=== PATIENT | male | born 1965 | race Caucasian/White ===

== ENCOUNTER 2017-01-17 07:22 | Outpatient (CLI) | payer OTHER | END 2017-01-17 07:23 | disposition home or self-care (01) | LOC: DTY/OP 07:22 | PROVIDERS: ATTEND Surgery | DX: E78.5 Hyperlipidemia, unspecified (principal); E11.9 Type 2 diabetes mellitus without complications; I10 Essential (primary) hypertension | CPT/HCPCS: 97802 ==

== ENCOUNTER 2017-02-15 12:18 | Day surgery (SDC) | payer BC, OTHER ==
[2017-02-14 12:15] VITALS: BMI 36.9
[2017-02-15] MEDS ORDERED: Lidocaine 1% PF 5 ML VIAL ONE (14:23)
[2017-02-15] MEDS ORDERED: Propofol 200 MG/20 ML VIAL ONE (14:23)
--- NOTE | 2017-02-15 17:12 | OP ---
PREOPERATIVE DIAGNOSIS: Persistent vomiting. PROCEDURE IN DETAIL: After informed consent was obtained, the patient was placed in the left lateral decubitus position. Anesthesia was administered per the Anesthesia Department. Forward-viewing end oscope was inserted into the esophagus under direct visualization with ease and passed to the second portion of the duodenum with ease. Second portion of the duodenum and duodenal bulb were normal exce pt for some Davian gland hyperplasia. This was biopsied and confirmed that this was Davian gland h yperplasia, but no ulcers or other abnormalities were seen. The antrum, body, fundus and cardia were all normal except for some mild erythema in the gastric antrum. Biopsies were taken. Retroflexion in the stomach was normal. The esophagus was normal throughout. No erosions or other abnormalities were noted. ASSESSMENT: 1. Mild antral erythema - status post biopsy. 2. 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 3. Otherwise normal esophagogastroduodenoscopy. RECOMMENDATIONS: Await histopathology.
== END 2017-02-15 15:05 | disposition home or self-care (01) ==
LOC: SDC 12:18
PROVIDERS: ATTEND Internal Medicine Gastroenterology
PROC: 0DB98ZX Excision of Duodenum, Via Natural or Artificial Opening Endoscopic, Diagnostic (ICD-10-PCS; principal; 2017-02-15)
PROC: 0DB68ZX Excision of Stomach, Via Natural or Artificial Opening Endoscopic, Diagnostic (ICD-10-PCS; principal; 2017-02-15)
DX: K31.89 Other diseases of stomach and duodenum (principal); I10 Essential (primary) hypertension; E11.9 Type 2 diabetes mellitus without complications; Z79.84 Long term (current) use of oral hypoglycemic drugs; Z79.82 Long term (current) use of aspirin; Z79.899 Other long term (current) drug therapy; Z88.0 Allergy status to penicillin; Z90.49 Acquired absence of other specified parts of digestive tract; Z98.890 Other specified postprocedural states
CPT/HCPCS: 88305; 88312; J2001; J2704

== ENCOUNTER 2017-02-20 08:06 | Outpatient (CLI) | payer BC, OTHER ==
[2017-02-20 09:47] LABS: #Eosinphils 0.1 thou/uL (0.0-0.7); #Lymphocytes 2.3 thou/uL (1.20-3.40); #Monocytes 0.5 thou/uL (0.11-0.59); %Basophils 0.3 % (0.0-1.0); %Lymphocytes 38.8 % (21.0-51.0); %Monocytes 8.2 % (0.0-10.0); Hematocrit 45.5 % (42.0-52.0); Mean Platelet Volume 8.1 fL (7.4-10.4); Red Blood Cell (RBC) Count 4.81 mill/uL (4.70-6.10); White Blood Cell (WBC) Count 5.9 thou/uL (4.8-10.8)
[2017-02-20 09:59] LABS: ALT (SGPT) 63 U/L (8-55); AST (SGOT) 34 U/L (5-34); Alkaline Phosphatase 87 U/L (40-150); Anion Gap 12 mmol/L (10-20); BUN (Urea Nitrogen) 11 mg/dL (8.4-25.7); Bilirubin, Direct 0.2 mg/dL (0.1-0.3); Bilirubin, Total 0.4 mg/dL (0.2-1.2); Calc. Creatinine Clearance 0 mL/min (70-130); Calcium 10.3 mg/dL (7.8-10.44); Carbon Dioxide 25 mmol/L (22-29); Chloride 103 mmol/L (98-107); Estimated GFR-MDRD 79; Globulin 3.2 g/dL (2.4-3.5); Protein, Total 7.5 g/dL (6.0-8.3)
[2017-02-20 10:08] LABS: Hemoglobin A1c 9.8 % (4.0-6.0)
--- NOTE | 2017-02-20 12:22 | RAD ---
CHEST 2 VIEWS: Date: 02/20/17 HISTORY: Preop. FINDINGS: No comparison. The cardiac silhouette and pulmonary vasculature are unremarkable. Mediastinum is midline with aortic calcification. There is no confluent air space consolidation, pneumothorax, or pleural fluid evident . Metallic clips overlie the mid abdomen on the lateral view. Old, healed fractures involving each cl avicle and the left scapula are apparent. There are postop changes of the left shoulder. IMPRESSION: 1. Atherosclerosis. 2. No active cardiopulmonary abnormalities are demonstrated. POS: PAIGE
== END 2017-02-20 08:07 | disposition home or self-care (01) ==
LOC: LABBT 08:06
PROVIDERS: ATTEND Surgery
DX: Z01.818 Encounter for other preprocedural examination (principal); E66.01 Morbid (severe) obesity due to excess calories; I70.90 Unspecified atherosclerosis
CPT/HCPCS: 71020; 80053; 80076; 83036; 85025; 93005; 93010

== ENCOUNTER 2017-02-23 08:30 | Inpatient (IN) | payer BC, OTHER ==
[2017-02-23] MEDS ORDERED: Heparin 5,000 UNITS/ML VIAL ONE (10:58)
[2017-02-23] MEDS ORDERED: Levofloxacin 500 mg/D5W 100 ml Premix Bag ONE (12:34)
[2017-02-23] MEDS ORDERED: Midazolam HCl 2 mg/2 ml Vial ONE ×2 (12:35→12:53)
[2017-02-23] MEDS ORDERED: Fentanyl 100 MCG/2 ML VIAL ONE ×5 (12:53→15:59)
[2017-02-23] MEDS ORDERED: Bupivacaine/Epinephrine 0.25% 30 ML VIAL ONE (13:09)
[2017-02-23] MEDS ORDERED: HYDROmorphone 0.5 MG/0.5 ML SYRINGE ONE ×5 (14:35→16:21)
[2017-02-23] MEDS ORDERED: Promethazine HCl 25 MG/ML VIAL IM PRN ×3 (15:18→17:09)
[2017-02-23] MEDS ORDERED: Promethazine HCl 25 MG/ML VIAL SLOW IVP PRN (15:18)
[2017-02-23] MEDS ORDERED: HYDROmorphone 2 MG/ML VIAL SLOW IVP PRN (15:18)
[2017-02-23] MEDS ORDERED: Meperidine HCl/PF 25 MG/ML VIAL SLOW IVP PRN (15:18)
[2017-02-23] MEDS ORDERED: Ondansetron HCl/PF 4 MG/2 ML Vial IVP PRN ×2 (15:18→17:09)
[2017-02-23] MEDS ORDERED: Glycopyrrolate 0.2 MG/ML 5 ML SYRINGE ONE (16:06)
[2017-02-23] MEDS ORDERED: Ondansetron HCl/PF 4 MG/2 ML Vial ONE (16:06)
[2017-02-23] MEDS ORDERED: Lidocaine 1% PF 5 ML VIAL ONE (16:06)
[2017-02-23] MEDS ORDERED: ePHEDrine/0.9% NaCl/PF SYRINGE 50 mg/10 ml ONE (16:06)
[2017-02-23] MEDS ORDERED: Propofol 200 MG/20 ML VIAL ONE (16:06)
[2017-02-23] MEDS ORDERED: Ketorolac Tromethamine 30 MG/ML VIAL ONE (16:06)
--- NOTE | 2017-02-23 16:20 | OP ---
DATE OF PROCEDURE: 02/23/2017 PREOPERATIVE DIAGNOSES: 1. Morbid obesity with a body mass index of 39. 2. Diabetes mellitus. 3. Hypertension. 4. Hyperlipidemia. POSTOPERATIVE DIAGNOSES: 1. Morbid obesity with a body mass index of 39. 2. Diabetes mellitus. 3. Hypertension. 4. Hyperlipidemia. PROCEDURES: 1. Laparoscopic sleeve gastrectomy with Terril staple line reinforcements and 38-Citizen [place] bougie. 2. Paraesophageal hiatal hernia repair. SURGEON: Charles Torres M.D. ANESTHESIA: General. ESTIMATED BLOOD LOSS: Minimal. COMPLICATIONS: None. SPECIMEN: Stomach. FINDINGS: Small hiatal hernia fixed with a 28-Citizen [place] bougie. INDICATION: The patient is a 51-year-old male, who presents for weight loss surgery. He has attende d our preoperative seminar. He understands risks, benefits, and alternatives procedures. He gives c onsent. He has been to our preop education class and had a psychologic evaluation. TECHNIQUE: The patient was taken to the operating room and placed supine on the table. After genera l anesthetic was obtained, arms and legs were double strapped to bariatric table. His abdomen was sh aved, prepped, and draped in a sterile fashion. Left subcostal 5-mm Optiview trocar was placed in th e usual fashion and high-flow pneumoperitoneum was obtained. Left and right abdominal 12-mm ports an d right subcostal 5-mm port were all placed under direct visualization. The patient was placed under direct Trendelenburg position. Karena was brought in through an incision at the xiphoid and rais ed the liver off the GE junction. Short gastrics were taken down, mid body of the stomach to left cr us of the diaphragm using LigaSure, taken down to a distance of 5 cm proximal to pylorus. All kiln operator ior adhesions were taken down. The patient was found to have a small hiatal hernia. The gastrohepat ic ligament was opened and the right paula of the diaphragm was found. The mediastinum was entered me dial to the paula. A circumferential dissection of the esophagus was performed. The GE junction is p ulled back into the abdominal cavity. A 38-bougie was brought in and its tip left in the antrum of t he stomach. One suture was used posteriorly to reapproximate the crura after the 38-bougie was passe d making sure that the hiatus was not made too tight. Multiple loads of an [place]tee stapling device w ere used to form the sleeve. The first was a green load fired up at a distance of 5 cm proximal to t he pylorus angled up towards the sleeve. Multiple loads were then fired up along the bougie and stom ach was completely transected at the angle of His. The stomach was removed from the left abdominal i ncision. This fascial defect was closed using GraNee needle and 0 Vicryl tie. All port sites were i nfiltrated using local anesthetic. EGD scope was passed into the esophagus, stomach to the level of the duodenum without obstruction. There is no injury. There is no air leakage through the staple li ne. The esophageal hiatus and GE junction was not too tight. There was no bleeding internally or ex ternally on the staple line. EGD scope was used to decompress the stomach, was pulled and removed. The Karena was removed under direct visualization. All port sites were infiltrated using local an esthetic. All ports were removed under camera visualization. Pneumoperitoneum was let down. PDS wa s used to close the fascial defect from left abdominal incision as well. All incisions were irrigate d and closed using 4-0 Monocryl and Dermabond. The patient went to recovery room in stable condition . All instrument counts, needle counts, and lap counts were correct.
[2017-02-23] MEDS ORDERED: diphenhydrAMINE 25 MG CAP PO PRN (16:36)
[2017-02-23] MEDS ORDERED: Naloxone HCl 0.4 mg/ml Vial IV PRN (16:36)
[2017-02-23] MEDS ORDERED: diphenhydrAMINE 50 MG/ML VIAL IM PRN (16:36)
[2017-02-23] MEDS ORDERED: diphenhydrAMINE 50 MG/ML VIAL IVP PRN ×2 (16:36→17:09)
[2017-02-23] MEDS ORDERED: Fentanyl 5000 MCG/250 ML CADD IVPB PRN (16:36)
[2017-02-23] MEDS ORDERED: Zolpidem Tartrate 5 MG TAB PO PRN (16:36)
[2017-02-23] MEDS ORDERED: Communication Order-Pharmacy FS SCH (16:45)
[2017-02-23] MEDS ORDERED: Hydrocodone-Acetamin 15 ML UDCUP PO PRN (17:09)
[2017-02-23] MEDS ORDERED: hydrALAZINE 20 MG/ML VIAL SLOW IVP PRN (17:09)
[2017-02-23] MEDS ORDERED: Dextrose 50% Abboject 50 ML SYRINGE SLOW IVP PRN (17:09)
[2017-02-23] MEDS ORDERED: Dextrose 5% in Water 1,000 ML IV PRN (17:09)
[2017-02-23 17:52] VITALS: BMI 36.8
[2017-02-23] MEDS: Acetaminophen 1,000 MG in Premix Bag 1 BAG IVPB SCH (18:24)
[2017-02-23] MEDS: 1/2 NS w/KCL 20 mEq 1,000 ML IV SCH (18:25)
[2017-02-23] MEDS ORDERED: Enoxaparin Sodium 40 MG/0.4 ML SYRINGE SC SCH (21:00)
[2017-02-24] MEDS: Acetaminophen 1,000 MG in Premix Bag 1 BAG IVPB SCH ×3 (01:45→11:31)
[2017-02-24] MEDS: 1/2 NS w/KCL 20 mEq 1,000 ML IV SCH (01:46)
[2017-02-24] MEDS: Ondansetron HCl/PF 4 MG/2 ML Vial IVP PRN ×2 (04:51→11:39)
[2017-02-24] MEDS: HumaLOG 300 UNITS/3 ML VIAL SC PRN ×3 (05:01→18:54)
[2017-02-24 06:23] LABS: #Eosinphils 0.1 thou/uL (0.0-0.7); #Lymphocytes 2.3 thou/uL (1.20-3.40); #Monocytes 0.7 thou/uL (0.11-0.59); #Neutrophils 9.9 thou/uL (1.40-6.50); %Basophils 0.1 % (0.0-1.0); %Eosinophils 0.5 % (0.0-10.0); %Monocytes 5.5 % (0.0-10.0); Hematocrit 40.6 % (42.0-52.0); Mean Platelet Volume 8.2 fL (7.4-10.4)
[2017-02-24 06:50] LABS: Anion Gap 18 mmol/L (10-20); BUN (Urea Nitrogen) 23 mg/dL (8.4-25.7); Calc. Creatinine Clearance 119 mL/min (70-130); Calcium 8.9 mg/dL (7.8-10.44); Carbon Dioxide 18 mmol/L (22-29); Chloride 103 mmol/L (98-107); Estimated GFR-MDRD 59
[2017-02-24] MEDS: Pantoprazole 40 MG VIAL IVP SCH (08:33)
[2017-02-24] MEDS: Sodium Chloride 0.9% 1,000 ML IV SCH ×2 (08:35→18:03)
[2017-02-24 08:53] LABS: Troponin I Less than 0.010 ng/mL (< 0.028)
[2017-02-24] MEDS: Morphine 4 MG/ML VIAL SLOW IVP PRN ×2 (08:57→21:58)
[2017-02-24] MEDS ORDERED: Morphine 4 MG/ML VIAL SLOW IVP PRN (09:00)
[2017-02-24] MEDS ORDERED: Amlodipine 5 MG TAB PO SCH (09:00)
--- NOTE | 2017-02-24 12:40 | PRG ---
DATE OF SERVICE: 02/24/2017 SUBJECTIVE: Mr. Corrales is complaining of shortness of breath and has been since early this m orning. He was not able to pee, had a catheter put in, in and out catheter at 5:00 a.m. that brought out 400 mL of urine. He has not peed since. He has not been able to walk as he feels dizzy. They held off on and taken him down for a swallow exam for the same reason. OBJECTIVE: VITAL SIGNS: His blood pressure is 104/71, pulse 69, respirations are 18, temperature 98.0. GENERAL: He is doing his CPAP right now while he is resting. Other than the 350 out this morning on in and out cath, another urine output is reported. CHEST: Bilateral coarse breath sounds. HEART: Regular rate and rhythm. ABDOMEN: Soft, appropriately tender. He does have some suprapubic tenderness. LABORATORY DATA: White blood cell count is 13, hemoglobin is 13 and platelet count is 241. Sodium 1 33, potassium 5.6, creatinine 1.28 and glucose 263. ASSESSMENT: Postoperative day #1, laparoscopic gastric sleeve with hiatal hernia repair as well. PLAN: We will do a CT of the chest with oral contrast to rule out PE as well as staple line leak. H is EKG is normal. His troponin is normal. His labs were all normal, hemoglobin normal. Unsure of t he etiology of his shortness of breath.
--- NOTE | 2017-02-24 14:16 | CT ---
CTA CHEST WITH CONTRAST: HISTORY: Evaluate for leak. COMPARISON: None. FINDINGS: DICTATION CUT OFF - REPORT INCOMPLETE POS: TPC
[2017-02-24 14:44] LABS: Hematocrit 32.5 % (42.0-52.0)
[2017-02-24 22:23] LABS: Hematocrit 30.6 % (42.0-52.0)
[2017-02-25] MEDS: HumaLOG 300 UNITS/3 ML VIAL SC PRN ×4 (00:30→23:10)
[2017-02-25] MEDS: Sodium Chloride 0.9% 1,000 ML IV SCH ×3 (00:31→18:55)
[2017-02-25] MEDS: Morphine 4 MG/ML VIAL SLOW IVP PRN ×4 (03:35→23:11)
[2017-02-25 06:05] LABS: Hematocrit 26.1 % (42.0-52.0)
[2017-02-25] MEDS: Pantoprazole 40 MG VIAL IVP SCH (10:28)
--- NOTE | 2017-02-25 14:13 | PRG ---
DATE OF SERVICE: 02/25/2017 SUBJECTIVE: Mr. Hank Corrales is a 51-year-old male seen by Dr. Torres. The patient is sta tus post 02/23/2017, sleeve gastrectomy. Postoperatively, he has developed a slight anemia, hemoglob in preoperatively 13, yesterday morning 10.9, yesterday evening at 10.1, today 8.7. The patient has felt dizzy, diaphoretic and cannot stand. For this reason, he was given 1 unit of blood this morning . Since that transfusion, he feels much better. He is able to walk and move about the room and plan s to walk in the hallways. His Lovenox has been held. He had urinary retention yesterday with negli gible residual and Bradshaw catheter will be removed today. OBJECTIVE: VITAL SIGNS: Temperature 97.9, heart rate 98, respiratory rate 14, blood pressure 141/86. LUNGS: Clear to auscultation. CARDIAC: Regular rate and rhythm without murmur or gallop. ABDOMEN: Soft, nontender. Surgical wounds look good. LABORATORY DATA: Hemoglobin 8.7 this morning. ASSESSMENT: Postoperative anemia. PLAN: He has received 1 unit of blood this morning. He is ambulating better. We will check his hem oglobins 1700 night and 2200 night and in the morning possibly he go home tomorrow, pending clinical course, activity and hemoglobin.
[2017-02-25 17:07] LABS: Hematocrit 25.4 % (42.0-52.0)
[2017-02-25 22:07] LABS: Hematocrit 23.7 % (42.0-52.0)
[2017-02-26] MEDS: Sodium Chloride 0.9% 1,000 ML IV SCH ×2 (00:26→10:36)
[2017-02-26] MEDS: HumaLOG 300 UNITS/3 ML VIAL SC PRN (05:15)
[2017-02-26 05:20] LABS: #Basophils 0.1 thou/uL (0.0-0.2); #Eosinphils 0.1 thou/uL (0.0-0.7); #Lymphocytes 2.1 thou/uL (1.20-3.40); #Monocytes 1.1 thou/uL (0.11-0.59); #Neutrophils 5.7 thou/uL (1.40-6.50); %Basophils 0.7 % (0.0-1.0); %Eosinophils 0.8 % (0.0-10.0); %Lymphocytes 23.2 % (21.0-51.0); %Monocytes 11.9 % (0.0-10.0); Hematocrit 22.6 % (42.0-52.0); Mean Platelet Volume 7.8 fL (7.4-10.4); Red Blood Cell (RBC) Count 2.39 mill/uL (4.70-6.10)
[2017-02-26] MEDS: Morphine 4 MG/ML VIAL SLOW IVP PRN (09:01)
[2017-02-26] MEDS: Pantoprazole 40 MG VIAL IVP SCH (09:01)
--- NOTE | 2017-02-26 12:40 | PRG ---
DATE OF SERVICE: 02/26/2017 SUBJECTIVE: Mr. Corrales is doing well after laparoscopic sleeve gastrectomy and seen for Dr. Torres. The patient is doing well. His hemoglobin is 7.9 this morning, down from 8 yesterday eveni ng, and 8.7 yesterday morning. Patient is ambulatory now after 1 unit of blood and without dizziness . OBJECTIVE: VITAL SIGNS: 98 degrees, 96, and 121/60. LUNGS: Clear to auscultation. CARDIAC: Regular rate and rhythm without murmur or gallop. ABDOMEN: Soft, obese, protuberant, nontender. Surgical wounds look good. Electrolytes are unremarkable on 02/24/2017. Overall, the patient is doing well. He is consuming hi s liquids. He has had bowel movements that are not bloody. ASSESSMENT AND PLAN: Intra-abdominal bleed, post-sleeve gastrectomy, hemoglobin stable. The patient is ready for discharge home. He will follow up with Dr. Torres per his appointment. He will begin his protein supplements as well as his vitamins. He will follow the bariatric diet progression to s radha on bariatric full liquids for now. He will follow up with Dr. Torres in about a week to 10 days .
[2017-02-26 13:53] VITALS: BP 169/90; TEMP 98.3
--- NOTE | 2017-02-27 12:23 | EKG ---
Test Reason : Blood Pressure : / mmHG Vent. Rate : 087 BPM Atrial Rate : 087 BPM P-R Int : 132 ms QRS Dur : 088 ms QT Int : 362 ms P-R-T Axes : 055 011 035 degrees QTc Int : 435 ms Normal sinus rhythm Normal ECG Confirmed by ALIZE HILL ([id number]) on 02/27/2017 12:23:14 PM Referred By: BASIM Confirmed By:ALIZE HILL
--- NOTE | 2017-02-28 07:24 | CT ---
CONTRAST ENHANCED CTA CHEST: HISTORY: Patient with gastric sleeve. Respiratory difficulties. TECHNIQUE: Contrast enhanced CTA of the chest is performed, and 2D and 3D reconstructed images are performed on an independent 3D work station. FINDINGS: Images demonstrate coronary artery calcifications. The aortic arch is unremarkable. No evidence of filling defects seen in the pulmonary arteries to suggest pulmonary emboli. The patient has had a recent Gastrografin swallow. There is some free intraperitoneal fluid, compatible with blood, surrounding the liver. There is a l arge intraperitoneal area of soft tissue density, measuring approximately 13 x 15.8 cm, along the gre ater curvature of the stomach, concerning for an intraperitoneal hematoma. This is well anterior to the pancreas. The adrenal glands and kidneys are unremarkable. IMPRESSION: Soft tissue collection to the left of the greater curvature of the stomach, concerning for intraperit samuels hematoma. Some free pelvic fluid and blood is also present. This is seen to the right of the liver. Findings called to Dr. Torres at 2:12 p.m. on 02/24/2017 CODE CR POS: LOLY
== END 2017-02-26 14:11 | disposition home or self-care (01) | DRG 620 ==
LOC: SURG A 09:27
PROVIDERS: ADMIT Surgery; ATTEND Surgery
PROC: 0DB64Z3 Excision of Stomach, Percutaneous Endoscopic Approach, Vertical (ICD-10-PCS; principal; 2017-02-23)
PROC: 0BQT4ZZ Repair Diaphragm, Percutaneous Endoscopic Approach (ICD-10-PCS; 2017-02-23)
PROC: 0DJ08ZZ Inspection of Upper Intestinal Tract, Via Natural or Artificial Opening Endoscopic (ICD-10-PCS; 2017-02-23)
PROC: 30233N1 Transfusion of Nonautologous Red Blood Cells into Peripheral Vein, Percutaneous Approach (ICD-10-PCS; 2017-02-25)
PROC: 5A09357 Assistance with Respiratory Ventilation, Less than 24 Consecutive Hours, Continuous Positive Airway Pressure (ICD-10-PCS; 2017-02-25)
DX: E66.01 Morbid (severe) obesity due to excess calories (principal); D62 Acute posthemorrhagic anemia; E11.9 Type 2 diabetes mellitus without complications; Z68.39 Body mass index [BMI] 39.0-39.9, adult; I10 Essential (primary) hypertension; E78.5 Hyperlipidemia, unspecified; K44.9 Diaphragmatic hernia without obstruction or gangrene; R33.8 Other retention of urine; R06.02 Shortness of breath; F32.9 Major depressive disorder, single episode, unspecified; G47.33 Obstructive sleep apnea (adult) (pediatric); Z88.0 Allergy status to penicillin; I08.1 Rheumatic disorders of both mitral and tricuspid valves
CPT/HCPCS: 36415; 36416; 36430; 71275; 80048; 84484; 85014; 85018; 85025; 86850; 86900; 86901; 88307; 88312; 93005; 93010; 94760; C9113; J0131; J1170; J1644; J1650; J1885; J1956; J2001; J2250; J2270; J2405; J2704; J3010; P9016

== ENCOUNTER 2017-02-28 01:09 | Inpatient (IN) | payer BC, OTHER ==
[2017-02-28] MEDS ORDERED: Ondansetron ODT 4 MG TAB ONE (02:09)
[2017-02-28 02:34] LABS: ALT (SGPT) 44 U/L (8-55); AST (SGOT) 30 U/L (5-34); Albumin 4.1 g/dL (3.5-5.0); Alkaline Phosphatase 67 U/L (40-150); Anion Gap 14 mmol/L (10-20); BUN (Urea Nitrogen) 17 mg/dL (8.4-25.7); Calc. Creatinine Clearance 0 mL/min (70-130); Carbon Dioxide 24 mmol/L (22-29); Chloride 102 mmol/L (98-107); Estimated GFR-MDRD 75; Globulin 3.4 g/dL (2.4-3.5); Glucose 280 mg/dL (70-105); Potassium 4.2 mmol/L (3.5-5.1); Protein, Total 7.5 g/dL (6.0-8.3); Sodium 136 mmol/L (136-145)
[2017-02-28 02:53] LABS: Anisocytosis SLIGHT = 6-15 cells (100X) (0-5/hpf); Band 3 % (5-11); Eosinophils 1 % (0-10); Hemoglobin 9.1 g/dL (14.0-18.0); Hypochromia SLIGHT = 6-15 cells (100X) (0-5/hpf); Lymphocytes 26 % (21-51); MDiff Complete? YES; Mean Corpuscular HGB CONC 32.8 g/dL (32.0-36.0); Mean Corpuscular Hemoglobin 30.9 pg (27.0-31.0); Mean Corpuscular Volume 94.3 fl (80.0-94.0); Mean Platelet Volume 7.7 fL (7.4-10.4); Monocytes 8 % (0-10); Neutrophil 62 % (42-75); Platelet Count 267 thou/uL (130-400); Polychromasia SLIGHT = 2-3 cells (100X) (0-2/hpf); Red Blood Cell (RBC) Count 2.95 mill/uL (4.70-6.10)
[2017-02-28] MEDS ORDERED: Ondansetron HCl/PF 4 MG/2 ML Vial ONE (03:59)
[2017-02-28] MEDS ORDERED: Morphine 4 MG/ML VIAL ONE (03:59)
[2017-02-28] MEDS ORDERED: Benzocaine 20% Spray 60 ML CAN ONE (05:28)
[2017-02-28] MEDS ORDERED: Morphine 2 MG/ML SYRINGE SLOW IVP PRN (08:29)
[2017-02-28] MEDS ORDERED: Morphine 4 MG/ML VIAL SLOW IVP PRN (08:30)
[2017-02-28] MEDS: Sodium Chloride 0.9% 1,000 ML IV SCH ×2 (08:45→18:27)
[2017-02-28] MEDS: Pantoprazole 40 MG VIAL IVP SCH ×2 (08:45→20:38)
--- NOTE | 2017-02-28 10:25 | CT ---
PRELIMINARY REPORT/[facility]/EMERGENCY AFTER HOURS PROCEDURE: EXAM: CT Abdomen and Pelvis With Intravenous Contrast CLINICAL HISTORY: 51 years old, male; Pain; Abdominal pain; Generalized; Prior surgery; Surgery date: <1 month; Surgery type: Barriatric TECHNIQUE: Axial computed tomography images of the abdomen and pelvis with intravenous contrast. Coronal reforma tted images were created and reviewed. CONTRAST: 100 mL of ISOVUE administered intravenously. COMPARISON: No relevant prior studies available. FINDINGS: Lower thorax: No acute findings. ABDOMEN: Liver: No acute findings. No mass. Gallbladder and bile ducts: Gallbladder has been removed. No ductal dilation. Pancreas: No acute findings. No mass. No ductal dilation. Spleen: No acute findings. No splenomegaly. Adrenals: No acute findings. No mass. Kidneys and ureters: No acute findings. No solid mass. No hydronephrosis. Stomach and bowel: There is evidence for gastric sleeve surgery. There is high attenuation 14.4 x 18.5 x 10.0 cm fluid c ollection along the left /inferior border of the stomach consistent with large hematoma. There is sma ll volume perisplenic fluid. There are dilated proximal and mid small bowel loops containing fluid / air fluid levels with luminal diameter measuring up to 5.2 cm. The mid and distal loops are decompressed. Transition point is noted in the region of the left lower quadrant. The findings are consistent with small bowel obstruction. Appendix: No findings to suggest acute appendicitis. PELVIS: Moderate volume of free hemorrhagic pelvic fluid layering dependently. Bladder: No acute findings. No mass. Reproductive: Unremarkable as visualized. ABDOMEN and PELVIS: Intraperitoneal space: No free air. See above regarding hematoma. Bones/joints: Chronic degenerative spinal changes without acute fracture or dislocation. Postoperative changes, left hip. Soft tissues: No acute findings. Vasculature: No acute findings. No abdominal aortic aneurysm. Lymph nodes: No acute findings. No enlarged lymph nodes. IMPRESSION: Large abdominal hematoma immediately adjacent to the stomach in this patient post recent gastric slee ve surgery. Moderate hemorrhagic fluid layering in the pelvis. Small volume perisplenic fluid. Findings suggestive of small bowel obstruction. THIS REPORT CONTAINS FINDINGS THAT MAY BE CRITICAL TO PATIENT CARE. The findings were verbally commun icated via telephone conference with GEE Smith by Dr. Francois on 02/28/2017 5:15 AM PHILOSOPHY FACULTY MEMBER. Th e results were acknowledged and understood. Thank you for allowing us to participate in the care of your patient. Dictated and Authenticated by: Camilo Francois MD 02/28/2017 5:20 AM Central Time ([place] & [place]) FINAL REPORT EMERGENT AFTER HOURS CT ABDOMEN AND PELVIS WITH CONTRAST: FINDINGS/IMPRESSION: I agree with the findings and impression given in the preliminary report by [facility] physician. There is a large hematoma adjacent to the patient's gastric sleeve. There is also a small amount of high densi ty fluid in the pelvis consistent with hemorrhage. No active extravasation is seen at this time. Ther e are dilated loops of small bowel which likely are secondary to small bowel ileus. Contrast is seen in the colon which suggests that dilated small bowel loops are ileus rather than a small bowel obstru ction. POS: PAIGE
[2017-02-28] MEDS ORDERED: diphenhydrAMINE 50 MG/ML VIAL IVP PRN (10:55)
[2017-02-28] MEDS ORDERED: hydrALAZINE 20 MG/ML VIAL SLOW IVP PRN (10:55)
[2017-02-28] MEDS ORDERED: Dextrose 50% Abboject 50 ML SYRINGE SLOW IVP PRN (10:55)
[2017-02-28] MEDS ORDERED: Dextrose 5% in Water 1,000 ML IV PRN (10:55)
[2017-02-28] MEDS ORDERED: Promethazine HCl 25 MG/ML VIAL IM PRN (10:55)
[2017-02-28] MEDS ORDERED: Ondansetron HCl/PF 4 MG/2 ML Vial IVP PRN (10:55)
--- NOTE | 2017-02-28 13:01 | HP ---
CHIEF COMPLAINT: Cold sweats, vomiting, nausea, abdominal pain. HISTORY OF PRESENT ILLNESS: The patient is a 51-year-old morbidly obese white male. He underwent la paroscopic sleeve gastrectomy on 02/23/2017. Following his surgery, he had experienced some shortnes s of breath, for which he had a CT angiogram performed on 02/24/2017. This revealed no evidence of a pulmonary embolism, but did show a 13 x 15 cm hematoma adjacent to the gastric sleeve. Accordingly, the patient's hemoglobin level dropped from 15 preoperatively down to 8.0 on the (postoperative day 2). He felt poorly and was transfused with 1 unit of packed red blood cells. He was discharged home thereafter and appeared to be tolerating his liquid diet and hemodynamically stable. About a d ay and half after he was discharged, last night, he developed recurrence of the same sort of symptoms that he had had while in the hospital. He complained of cold sweats, suspected low grade fever, robert sea and vomiting, and increasing abdominal pain and distention. He presented to the emergency room w here he underwent evaluation with another CT scan of his abdomen and laboratory studies. His laboratory studies reveal that his hemoglobin is stable at 9.1. His white blood cell count is 10 and he has a normal differential. His chemistry profile is entirely normal except for his elevated glucose level of 280. The CT scan of his abdomen revealed a persistent hematoma that was estimated a t 14 x 18 x 10 cm. This is certainly consistent with the same hematoma that was seen 3 days previous ly. There were also some dilated loops of small bowel proximally with decompressed small bowel dista lly. PAST MEDICAL HISTORY: Diabetes, sleep apnea, hypertension, hypercholesterolemia. PAST SURGICAL HISTORY: He has had an exploratory laparotomy as well as sleeve gastrectomy. ALLERGIES: PENICILLIN. MEDICATIONS: At home include acebutolol, amlodipine, aspirin, bupropion, fluoxetine, glyburide/metfo rmin, and simvastatin. PERSONAL/SOCIAL HISTORY: He is and his is present at bedside. They have 2 grown childr en. He normally dips tobacco, but has not since surgery. He normally drinks alcohol occasionally, b ut of course he has drunk no alcohol recently. He works in Criminal Justice. PRIMARY CARE PHYSICIAN: Dr. Nicholson. PHYSICAL EXAMINATION: VITAL SIGNS: Temperature 98.6, pulse 89, blood pressure 129/83, oxygen saturation on room air was 97 %. GENERAL: He is a pleasant, alert, obese white male, resting in bed. is present at bedside. He is alert and oriented x3 and conversant and cooperative. HEAD, EYES, EARS, NOSE, AND THROAT: Unremarkable. NECK: Supple. LUNGS: Clear to auscultation anteriorly. CARDIAC: Regular rate and rhythm without murmur. ABDOMEN: Obese and possibly little distended. His incisions are healing nicely with minimal appropr iate tenderness. There is surprisingly pretty good bowel sounds with no evidence of tympany. ASSESSMENT: This patient is hemodynamically stable and he is likely experiencing some side effects f rom the large retained intra-abdominal hematoma. There is clearly no ongoing bleeding related to his surgery. I suspect he has a segmental ileus, probably related to hematoma. I suspect his discomfor t and perhaps his sensation of cold sweats is related to the hematoma resolving also. Options are to consider surgery to irrigate and trying to aspirate the hematoma or proceed with observation. For n ow, given the stability, I would recommend continued observation. His surgeon, Dr. Torres, will ret urn tomorrow and he can readdress the option as he would desire. For now, I would recommend the kalyn ent be n.p.o. except for ice chips to keep his mouth moist. Narcotics are written for and available to him, but I have encouraged him to avoid these unless he needs them. I have also encouraged him to ambulate fairly regularly. I would not recommend beginning the Lovenox because of his recent bleed and therefore it is essential that he have his sequential compression devices on at all times when he is not ambulating. I suspect that his problems will resolve spontaneously just as the hematoma shou ld resolve without further intervention. I have discussed all this in detail with the patient and hi s . They feel relieved by the current situation and understand and agreed to proceed in this fas hion.
[2017-02-28] MEDS: Acetaminophen 1,000 MG in Premix Bag 1 BAG IVPB SCH ×2 (13:29→18:27)
[2017-02-28] MEDS: 1/2 NS w/KCL 20 mEq 1,000 ML IV SCH ×2 (13:29→20:38)
[2017-02-28] MEDS ORDERED: Iopamidol 370 76% 100 ML VIAL ONE (13:58)
[2017-03-01] MEDS: Acetaminophen 1,000 MG in Premix Bag 1 BAG IVPB SCH ×3 (00:12→12:36)
[2017-03-01] MEDS: 1/2 NS w/KCL 20 mEq 1,000 ML IV SCH ×3 (03:21→16:41)
[2017-03-01 05:37] LABS: Anion Gap 10 mmol/L (10-20); BUN (Urea Nitrogen) 15 mg/dL (8.4-25.7); Calc. Creatinine Clearance 187 mL/min (70-130); Calcium 8.7 mg/dL (7.8-10.44); Carbon Dioxide 28 mmol/L (22-29); Chloride 104 mmol/L (98-107); Estimated GFR-MDRD Greater than 90; Glucose 201 mg/dL (70-105); Potassium 4.1 mmol/L (3.5-5.1); Sodium 138 mmol/L (136-145)
[2017-03-01 06:00] LABS: #Eosinphils 0.2 thou/uL (0.0-0.7); #Lymphocytes 1.6 thou/uL (1.20-3.40); #Monocytes 0.8 thou/uL (0.11-0.59); #Neutrophils 3.4 thou/uL (1.40-6.50); %Basophils 0.4 % (0.0-1.0); %Eosinophils 3.1 % (0.0-10.0); %Lymphocytes 27.2 % (21.0-51.0); %Monocytes 12.6 % (0.0-10.0); %Neutrophils 56.6 % (42.0-75.0); Hemoglobin 7.9 g/dL (14.0-18.0); Mean Corpuscular HGB CONC 32.4 g/dL (32.0-36.0); Mean Corpuscular Hemoglobin 31.1 pg (27.0-31.0); Mean Corpuscular Volume 96.1 fl (80.0-94.0); Mean Platelet Volume 7.6 fL (7.4-10.4); Platelet Count 251 thou/uL (130-400); RBC Distribution Width 13.7 % (11.5-14.5); Red Blood Cell (RBC) Count 2.54 mill/uL (4.70-6.10)
[2017-03-01] MEDS: Pantoprazole 40 MG VIAL IVP SCH ×2 (07:50→21:24)
--- NOTE | 2017-03-01 09:56 | PRG ---
DATE OF SERVICE: 03/01/2017 SUBJECTIVE: Mr. Corrales feels better today. He is passing gas. He has been ambulatory multi ple times. Denies any nausea and vomiting this morning. PHYSICAL EXAMINATION: VITAL SIGNS: Blood pressure 136/82, pulse 92, respirations 16. He is afebrile. He has voided multi ple times. ABDOMEN: Soft, it is distended. There is diffuse ecchymoses to the mid to low abdomen. He does hav e bowel sounds. No guarding or rebound. LABORATORY DATA: White cell count is 6, hemoglobin 7.9, platelet count is 251. Sodium 138, potassiu m 4.1, creatinine 0.82, sugar 201. ASSESSMENT: Postoperative laparoscopic gastric sleeve, complicated by postoperative intra-abdominal hematoma and bleeding requiring 1 unit of packed red blood cells now with recurrent admission for robert sea and vomiting, likely related to ileus or dysphagia from his repair. PLAN: Supportive care. He is improved, we will attempt clear liquid diet today. Hemoglobin has kareem pped slightly from 9 to 7.9 that is probably delusional. He was probably dehydrated and with hemoglo bin last night on admission of 9. This most likely represents a true representation where he has con trolled sugars with sliding scale and encouraged ambulation.
[2017-03-01] MEDS: Insulin Regular 300 UNITS/3 ML VIAL SC PRN (17:39)
[2017-03-02] MEDS: Insulin Regular 300 UNITS/3 ML VIAL SC PRN ×4 (00:23→20:26)
[2017-03-02] MEDS: 1/2 NS w/KCL 20 mEq 1,000 ML IV SCH (00:23)
[2017-03-02] MEDS: Pantoprazole 40 MG VIAL IVP SCH ×2 (08:03→20:25)
[2017-03-02] MEDS ORDERED: 1/2 NS w/KCL 20 mEq 1,000 ML IV SCH (08:59)
--- NOTE | 2017-03-02 09:12 | PRG ---
DATE OF SERVICE: 03/02/2017 SUBJECTIVE: The patient is doing well today, had two bowel movements. Yesterday, he passing gas. H e feels less bloated. Tolerating a full liquid diet without difficulty and ambulatory. PHYSICAL EXAMINATION: VITAL SIGNS: He is afebrile. Vital signs are stable. ABDOMEN: Soft, minimally distended. Diffuse ecchymoses in the lower abdomen, but no obvious wound i nfection. ASSESSMENT: Postoperative ileus secondary to intra-abdominal hematoma, resolving, tolerating full li quids. PLAN: TKO IV fluids. Re-add Lortab and elixir for pain. Continue to encourage mobilization. Reche ck his hemoglobin and hematocrit one more time in the morning and likely discharge home tomorrow.
[2017-03-02] MEDS: Hydrocodone-Acetamin 15 ML UDCUP PO PRN ×2 (13:11→20:25)
[2017-03-03 04:57] LABS: #Eosinphils 0.1 thou/uL (0.0-0.7); #Lymphocytes 1.6 thou/uL (1.20-3.40); #Monocytes 0.8 thou/uL (0.11-0.59); #Neutrophils 4.5 thou/uL (1.40-6.50); %Basophils 0.2 % (0.0-1.0); %Eosinophils 2.1 % (0.0-10.0); %Lymphocytes 22.5 % (21.0-51.0); %Neutrophils 64.2 % (42.0-75.0); Hemoglobin 7.9 g/dL (14.0-18.0); Mean Corpuscular HGB CONC 32.4 g/dL (32.0-36.0); Mean Corpuscular Hemoglobin 31.6 pg (27.0-31.0); Mean Corpuscular Volume 97.3 fl (80.0-94.0); Mean Platelet Volume 7.3 fL (7.4-10.4); Platelet Count 281 thou/uL (130-400); Red Blood Cell (RBC) Count 2.49 mill/uL (4.70-6.10)
[2017-03-03 05:13] LABS: Anion Gap 12 mmol/L (10-20); BUN (Urea Nitrogen) 8 mg/dL (8.4-25.7); Calc. Creatinine Clearance 194 mL/min (70-130); Calcium 8.8 mg/dL (7.8-10.44); Carbon Dioxide 28 mmol/L (22-29); Chloride 104 mmol/L (98-107); Estimated GFR-MDRD Greater than 90; Glucose 189 mg/dL (70-105); Potassium 4.5 mmol/L (3.5-5.1); Sodium 139 mmol/L (136-145)
[2017-03-03] MEDS: Insulin Regular 300 UNITS/3 ML VIAL SC PRN (05:21)
[2017-03-03] MEDS: Pantoprazole 40 MG VIAL IVP SCH (08:11)
[2017-03-03 12:10] VITALS: BP 118/81; TEMP 98.3
== END 2017-03-03 13:24 | disposition home or self-care (01) | DRG 920 ==
LOC: ERS 01:09 → SURG B 07:54
PROVIDERS: ADMIT Specialist; ATTEND Specialist
DX: K91.870 Postprocedural hematoma of a digestive system organ or structure following a digestive system procedure (principal); K56.7 Ileus, unspecified; K91.89 Other postprocedural complications and disorders of digestive system; R13.10 Dysphagia, unspecified; E11.9 Type 2 diabetes mellitus without complications; E86.0 Dehydration; I10 Essential (primary) hypertension; Z88.0 Allergy status to penicillin; Z98.84 Bariatric surgery status; Y83.2 Surgical operation with anastomosis, bypass or graft as the cause of abnormal reaction of the patient, or of later complication, without mention of misadventure at the time of the procedure; Y92.234 Operating room of hospital as the place of occurrence of the external cause
CPT/HCPCS: 36415; 36416; 74177; 80048; 80053; 83605; 83690; 85025; 86850; 86900; 86901; 93005; 94760; 96361; 96374; 96375; C9113; J0131; J1815; J2270; J2405; Q0162

== ENCOUNTER 2017-06-29 07:57 | Outpatient (CLI) | payer BC, OTHER | END 2017-06-29 07:58 | disposition home or self-care (01) | LOC: LAB 07:57 | PROVIDERS: ATTEND Family Medicine | DX: E11.9 Type 2 diabetes mellitus without complications (principal) ==